=== PATIENT | female | born 1950 | race Two or more races ===

== ENCOUNTER 2022-05-16 08:27 | Inpatient (IN) | payer OTHER ==
[2022-05-16] VITALS (9 sets, daily range): BP systolic 120–162; BP diastolic 65–92
[~2022-05-16] VITALS: Ht 149.9 cm; Wt 75.1 kg
[~2022-05-16 08:27] MED LIST: ACET60TA10 PO; AML5T PO; FERR325T20 PO; FLUO1TAB14 PO; IBUP600T27 PO; LEV50T PO; LISI-285 PO; LOVA20TA4 PO; OMEP20TA PO; PANT40TA2 PO
[2022-05-16] MEDS ORDERED: ceFAZolin 1GM/50ML 100 ML IV ONE (08:47)
[2022-05-16] MEDS ORDERED: MORPHINE SULF PF 5 MG/10 ML VIAL ONE (10:48)
[2022-05-16] MEDS ORDERED: fentaNYL CITRATE 100 MCG/2 ML VL ONE (10:48)
[2022-05-16] MEDS ORDERED: MIDAZOLAM HCL 2MG/2ML 2ml VIAL (1mg/ml) ONE ×2 (10:48)
[2022-05-16] MEDS ORDERED: BUPIVACAINE W/ EPINEPH 0.25% INJ 50ML MDV ONE (10:51)
[2022-05-16] MEDS ORDERED: TETRACAINE 1% INJ 2 ML VIAL IJ ONE (10:52)
[2022-05-16] MEDS ORDERED: KETOROLAC TROMETH 30 MG/ML 1ML VIAL ONE (10:54)
[2022-05-16] MEDS ORDERED: TRANEXAMIC ACID 20 ML ONE (10:54)
[2022-05-16] MEDS ORDERED: VANCOMYCIN HCL 1000 MG VL ONE (10:54)
[2022-05-16] MEDS ORDERED: DexAMETHasone SOD PHOS 10MG/1ML VIAL INJ IV ONE (12:55)
[2022-05-16] MEDS ORDERED: MIDAZOLAM HCL 2MG/2ML 2ml VIAL (1mg/ml) IV PRN (13:30)
[2022-05-16] MEDS ORDERED: NALBUPHINE HCL 10 MG/1ml INJECTION SUBCUT ONE (13:30)
[2022-05-16] MEDS ORDERED: HYDROmorphone HCL 2 MG/ML VL/or syr IV PRN (13:30)
[2022-05-16] MEDS ORDERED: NALOXONE HCL 0.4 MG/ML VIAL IV PRN (13:30)
[2022-05-16] MEDS ORDERED: DexAMETHasone SOD PHOS 10MG/1ML VIAL INJ IV PRN (13:30)
[2022-05-16] MEDS ORDERED: LABETALOL HCL 5 MG/ML 4ML SYRINGE IV PRN (13:30)
[2022-05-16] MEDS ORDERED: ePHEDrine SULFATE 50 MG/ML AMP IV PRN (13:30)
[2022-05-16] MEDS: D5W/LACTATED RINGERS 1,000 ML IV SCH (14:15)
[2022-05-16] MEDS ORDERED: oxyCODONE HCL 5MG TAB PO PRN (14:15)
[2022-05-16] MEDS: oxyCODONE HCL 5MG TAB PO PRN ×2 (16:15→21:42)
[2022-05-16] MEDS: ACETAMINOPHEN 325 MG TAB PO SCH (17:57)
[2022-05-16] MEDS: KETOROLAC TROMETH 30 MG/ML 1ML VIAL IV SCH (17:58)
[2022-05-16] MEDS: ceFAZolin 2 GM in D5W 5% 100 ML IV SCH (17:58)
[2022-05-16] MEDS: PREGABALIN 25 MG CAP PO SCH (21:41)
[2022-05-17] VITALS (16 sets, daily range): BP systolic 99–162; BP diastolic 55–91
[2022-05-17] MEDS: KETOROLAC TROMETH 30 MG/ML 1ML VIAL IV SCH ×4 (00:08→18:00)
[2022-05-17] MEDS: ACETAMINOPHEN 325 MG TAB PO SCH ×4 (00:08→17:55)
[2022-05-17] MEDS: ceFAZolin 2 GM in D5W 5% 100 ML IV SCH (00:09)
[2022-05-17] MEDS: D5W/LACTATED RINGERS 1,000 ML IV SCH ×3 (00:15→20:15)
[2022-05-17] MEDS: oxyCODONE HCL 5MG TAB PO PRN ×3 (01:57→21:31)
[2022-05-17] MEDS: ONDANSETRON HCL 4 MG/2 ML VIAL IV PRN (03:57)
[2022-05-17] MEDS: [UNRECOGNIZED DRUG - REMARK] PO SCH (10:00)
[2022-05-17] MEDS ORDERED: PATIENTS OWN MEDICATION (Fluoxetine HCl (Pmdd) (Fluoxetine HCl) 20 MG) PO SCH (10:00)
[2022-05-17] MEDS: amLODIPine BESYLATE 5 MG TAB PO SCH (10:00)
[2022-05-17] MEDS: FLUoxetine HCL 20 MG CAP PO SCH ×2 (10:00→11:13)
[2022-05-17] MEDS ORDERED: PATIENTS OWN MEDICATION (Lovastatin 20 MG) PO SCH (10:00)
[2022-05-17] MEDS: ASPirin 81 mg TAB PO SCH ×2 (11:07→22:56)
[2022-05-17] MEDS: PREGABALIN 25 MG CAP PO SCH ×2 (11:12→22:56)
[2022-05-17] MEDS: LEVOTHYROXINE SODIUM 50 MCG TAB PO SCH (11:13)
[2022-05-17] MEDS: PRAVASTATIN SODIUM 20 MG TAB PO SCH (11:14)
[2022-05-17] MEDS: PANTOPRAZOLE 40 MG TAB PO SCH (11:14)
[2022-05-17] MEDS ORDERED: BISACODYL 10 MG RECT SUPP PR ONE (22:00)
[2022-05-18] VITALS (7 sets, daily range): BP systolic 93–159; BP diastolic 52–69
[2022-05-18] MEDS: KETOROLAC TROMETH 30 MG/ML 1ML VIAL IV SCH ×4 (00:59→18:19)
[2022-05-18] MEDS: ACETAMINOPHEN 325 MG TAB PO SCH ×4 (00:59→18:47)
[2022-05-18] MEDS: D5W/LACTATED RINGERS 1,000 ML IV SCH ×2 (06:15→08:00)
[2022-05-18] MEDS: ONDANSETRON HCL 4 MG/2 ML VIAL IV PRN ×6 (09:00→22:52)
[2022-05-18] MEDS: oxyCODONE HCL 5MG TAB PO PRN (09:17)
[2022-05-18] MEDS: [UNRECOGNIZED DRUG - REMARK] PO SCH (10:00)
[2022-05-18] MEDS: amLODIPine BESYLATE 5 MG TAB PO SCH (10:00)
[2022-05-18] MEDS: MORPHINE SULFATE INJ 2 MG/ml SYRG IV PRN (10:49)
[2022-05-18] MEDS: PANTOPRAZOLE 40 MG TAB PO SCH (10:50)
[2022-05-18] MEDS: PRAVASTATIN SODIUM 20 MG TAB PO SCH (10:50)
[2022-05-18] MEDS: PREGABALIN 25 MG CAP PO SCH ×2 (10:50→22:00)
[2022-05-18] MEDS: ASPirin 81 mg TAB PO SCH (10:50)
[2022-05-18] MEDS: FLUoxetine HCL 20 MG CAP PO SCH (10:51)
[2022-05-18] MEDS: LEVOTHYROXINE SODIUM 50 MCG TAB PO SCH (10:51)
[2022-05-18 15:41] LABS: Basophils # (auto) 0 10 ^3/uL (0-0.2); Basophils % (auto) 0.2 % (0.0-2.0); Eosinophils # (auto) 0.1 10 ^3/uL (0-0.8); Eosinophils % (auto) 0.7 % (0.0-7.0); Hematocrit 25.1 % (36.0-46.0); Hemoglobin 8.5 g/dL (12.2-16.2); Lymphocytes # (auto) 0.5 10 ^3/uL (0.4-5.4); Lymphocytes % (auto) 3.9 % (10.0-50.0); Mean Corpuscular Hemoglobin 32.9 pg (28.0-32.0); Mean Corpuscular Volume 96.8 fL (80.0-100.0); Monocytes # (auto) 0.6 10 ^3/uL (0-1.3); Monocytes % (auto) 4.7 % (0.0-12.0); Neutrophils % (auto) 90.5 % (37.0-80.0); Red Blood Cells 2.59 10^6/uL (4.0-5.20); White Blood Cell 13.2 10^3/uL (4.4-10.8)
[2022-05-18 15:52] LABS: BUN/Creatinine Ratio 52.8; Calcium 8.4 mg/dL (8.5-10.1); Potassium 4.4 mmol/L (3.5-5.1)
[2022-05-18] MEDS: PROMETHAZINE HCL 25 MG/ML 1ML IV PRN (23:24)
[2022-05-19] VITALS (18 sets, daily range): BP systolic 11–142; BP diastolic 42–82
[2022-05-19 00:33] LABS: Basophils # (auto) 0 10 ^3/uL (0-0.2); Eosinophils # (auto) 0.1 10 ^3/uL (0-0.8); Hematocrit 18.4 % (36.0-46.0); Red Blood Cells 1.88 10^6/uL (4.0-5.20); Red Cell Distribution Width 13.9 % (11.8-14.3)
[2022-05-19 00:35] LABS: Basophils % (auto) 0.3 % (0.0-2.0); Eosinophils % (auto) 0.9 % (0.0-7.0); Mean Corpuscular Hemoglobin 32.4 pg (28.0-32.0); Mean Corpuscular Hgb Conc. 33.1 g/dL (32.0-36.0); Monocytes # (auto) 0.9 10 ^3/uL (0-1.3); Monocytes % (auto) 7.9 % (0.0-12.0); Neutrophils # (auto) 9.9 10 ^3/uL (1.6-8.6); Neutrophils % (auto) 82.9 % (37.0-80.0); White Blood Cell 11.9 10^3/uL (4.4-10.8)
[2022-05-19 00:53] LABS: Hemoglobin 6.1 g/dL (12.2-16.2)
[2022-05-19] MEDS: D5W/LACTATED RINGERS 1,000 ML IV SCH ×2 (02:15→12:10)
[2022-05-19] MEDS: KETOROLAC TROMETH 30 MG/ML 1ML VIAL IV SCH ×4 (06:00→20:00)
[2022-05-19] MEDS: ACETAMINOPHEN 325 MG TAB PO SCH ×4 (06:00→18:00)
[2022-05-19] MEDS: FLUoxetine HCL 20 MG CAP PO SCH (10:00)
[2022-05-19] MEDS: amLODIPine BESYLATE 5 MG TAB PO SCH (10:00)
[2022-05-19] MEDS: LISINOPRIL 20 MG TAB PO SCH (10:00)
[2022-05-19] MEDS: HCTZ 25 MG TAB PO SCH (10:00)
[2022-05-19] MEDS: PRAVASTATIN SODIUM 20 MG TAB PO SCH (10:00)
[2022-05-19] MEDS: PREGABALIN 25 MG CAP PO SCH ×2 (10:00→22:00)
[2022-05-19] MEDS: LEVOTHYROXINE SODIUM 50 MCG TAB PO SCH (10:00)
[2022-05-19] MEDS: PANTOPRAZOLE 40mg/50ML NS AE 50 ML IV SCH ×4 (10:56→23:30)
[2022-05-19] MEDS ORDERED: oxyCODONE HCL 5MG TAB PO PRN ×2 (13:00→13:30)
[2022-05-19] MEDS ORDERED: D5W/LACTATED RINGERS 1,000 ML IV SCH (13:00)
[2022-05-19 14:45] LABS: INR 0.92 (0.9-1.15); Partial Thromboplastin Time 21.2 sec (24.6-33.4)
[2022-05-19] MEDS: D5W/SOD CHLO 0.9% 1,000 ML IV SCH (16:15)
[2022-05-19 19:58] LABS: Basophils # (auto) 0 10 ^3/uL (0-0.2); Basophils % (auto) 0.2 % (0.0-2.0); Eosinophils # (auto) 0 10 ^3/uL (0-0.8); Eosinophils % (auto) 0.3 % (0.0-7.0); Hematocrit 28.5 % (36.0-46.0); Hemoglobin 9.3 g/dL (12.2-16.2); Lymphocytes # (auto) 0.5 10 ^3/uL (0.4-5.4); Lymphocytes % (auto) 5.3 % (10.0-50.0); Mean Corpuscular Hemoglobin 29.7 pg (28.0-32.0); Mean Corpuscular Hgb Conc. 32.5 g/dL (32.0-36.0); Mean Corpuscular Volume 91.3 fL (80.0-100.0); Monocytes # (auto) 0.6 10 ^3/uL (0-1.3); Monocytes % (auto) 7.3 % (0.0-12.0); Neutrophils # (auto) 7.6 10 ^3/uL (1.6-8.6); Neutrophils % (auto) 86.9 % (37.0-80.0); Red Blood Cells 3.12 10^6/uL (4.0-5.20); Red Cell Distribution Width 17.2 % (11.8-14.3); White Blood Cell 8.7 10^3/uL (4.4-10.8)
[2022-05-19 20:07] LABS: BUN/Creatinine Ratio 55.5; Potassium 4.1 mmol/L (3.5-5.1)
[2022-05-20] VITALS (7 sets, daily range): BP systolic 97–131; BP diastolic 49–57
[2022-05-20] MEDS: D5W/SOD CHLO 0.9% 1,000 ML IV SCH ×2 (05:35→18:37)
[2022-05-20] MEDS: PANTOPRAZOLE 40mg/50ML NS AE 50 ML IV SCH ×2 (05:38→10:56)
[2022-05-20] MEDS: ACETAMINOPHEN 325 MG TAB PO SCH ×4 (06:00→18:36)
[2022-05-20 06:10] LABS: INR 0.97 (0.9-1.15); Partial Thromboplastin Time 28.9 sec (24.6-33.4)
[2022-05-20 06:11] LABS: Basophils # (auto) 0 10 ^3/uL (0-0.2); Eosinophils # (auto) 0.1 10 ^3/uL (0-0.8); Hematocrit 22.9 % (36.0-46.0); Lymphocytes # (auto) 0.4 10 ^3/uL (0.4-5.4); Monocytes # (auto) 0.9 10 ^3/uL (0-1.3); Neutrophils # (auto) 7.7 10 ^3/uL (1.6-8.6); Nucleated Red Blood Cells % 0.1 %
[2022-05-20 06:13] LABS: Basophils % (auto) 0.1 % (0.0-2.0); Eosinophils % (auto) 1.6 % (0.0-7.0); Lymphocytes % (auto) 4.6 % (10.0-50.0); Mean Corpuscular Hemoglobin 31.5 pg (28.0-32.0); Mean Corpuscular Hgb Conc. 35.1 g/dL (32.0-36.0); Mean Corpuscular Volume 89.6 fL (80.0-100.0); Monocytes % (auto) 9.6 % (0.0-12.0); Neutrophils % (auto) 84.1 % (37.0-80.0); Red Blood Cells 2.56 10^6/uL (4.0-5.20); Red Cell Distribution Width 16.9 % (11.8-14.3); White Blood Cell 9.1 10^3/uL (4.4-10.8)
[2022-05-20 06:19] LABS: Potassium 4.6 mmol/L (3.5-5.1)
[2022-05-20 06:34] LABS: BUN/Creatinine Ratio 63.6; Bilirubin, Total 0.6 mg/dL (0.2-1.0); Total Protein 5.1 g/dL (6.4-8.2)
[2022-05-20] MEDS: PRAVASTATIN SODIUM 20 MG TAB PO SCH (09:23)
[2022-05-20] MEDS: PREGABALIN 25 MG CAP PO SCH ×2 (09:23→21:36)
[2022-05-20] MEDS: FLUoxetine HCL 20 MG CAP PO SCH (09:24)
[2022-05-20] MEDS: LEVOTHYROXINE SODIUM 50 MCG TAB PO SCH (09:24)
[2022-05-20] MEDS: PROMETHAZINE HCL 25 MG/ML 1ML IV PRN (09:25)
[2022-05-20] MEDS: LISINOPRIL 20 MG TAB PO SCH (09:37)
[2022-05-20] MEDS: amLODIPine BESYLATE 5 MG TAB PO SCH (09:37)
[2022-05-20] MEDS: HCTZ 25 MG TAB PO SCH (09:38)
[2022-05-20 10:57] LABS: Magnesium 2.1 mg/dL (1.6-2.6); Phosphorus 2.5 mg/dL (2.5-4.90)
[2022-05-20 12:31] LABS: Urine Bacteria FEW /hpf (None Seen); Urine Blood TRACE /uL (Negative); Urine Specific Gravity 1.015 (1.001-1.035); Urine WBC 4 /hpf (0 - 5)
[2022-05-20 12:51] LABS: Protein, Urine 53.3 mg/dL (0.0-11.9)
[2022-05-20 12:52] LABS: Creatinine, Urine 57 mg/dL (30.0-125.0); Sodium Urine 9 mmol/L (40-220)
[2022-05-20] MEDS: oxyCODONE HCL 5MG TAB PO PRN (14:30)
[2022-05-20] MEDS ORDERED: SODIUM FERR GLUC 62.5MG/5ML 125 MG in SODIUM CHL 0.9% 100 ML IV ONE (15:00)
[2022-05-20] MEDS ORDERED: IRON SUCROSE COMPLEX 200 MG in SODIUM CHL 0.9% 100 ML IV ONE (15:15)
[2022-05-20] MEDS: PANTOPRAZOLE 40 MG TAB PO SCH (21:37)
[2022-05-21] VITALS (7 sets, daily range): BP systolic 104–145; BP diastolic 57–77
[2022-05-21] MEDS: ACETAMINOPHEN 325 MG TAB PO SCH ×4 (00:16→17:30)
[2022-05-21 06:13] LABS: Basophils # (auto) 0 10 ^3/uL (0-0.2); Eosinophils # (auto) 0.4 10 ^3/uL (0-0.8); Hemoglobin 7.6 g/dL (12.2-16.2)
[2022-05-21 06:15] LABS: Basophils % (auto) 0.3 % (0.0-2.0); Eosinophils % (auto) 3.4 % (0.0-7.0); Hematocrit 22.6 % (36.0-46.0); Lymphocytes # (auto) 0.7 10 ^3/uL (0.4-5.4); Lymphocytes % (auto) 6.3 % (10.0-50.0); Mean Corpuscular Hgb Conc. 33.9 g/dL (32.0-36.0); Mean Corpuscular Volume 91.4 fL (80.0-100.0); Monocytes # (auto) 1.4 10 ^3/uL (0-1.3); Monocytes % (auto) 12.4 % (0.0-12.0); Neutrophils # (auto) 8.5 10 ^3/uL (1.6-8.6); Neutrophils % (auto) 77.6 % (37.0-80.0); Red Blood Cells 2.47 10^6/uL (4.0-5.20); Red Cell Distribution Width 17.3 % (11.8-14.3)
[2022-05-21 06:43] LABS: Calcium 8.1 mg/dL (8.5-10.1)
[2022-05-21] MEDS: D5W/SOD CHLO 0.9% 1,000 ML IV SCH (07:42)
[2022-05-21] MEDS: FLUoxetine HCL 20 MG CAP PO SCH (09:27)
[2022-05-21] MEDS: PRAVASTATIN SODIUM 20 MG TAB PO SCH (09:27)
[2022-05-21] MEDS: PANTOPRAZOLE 40 MG TAB PO SCH ×2 (09:28→22:25)
[2022-05-21] MEDS: LEVOTHYROXINE SODIUM 50 MCG TAB PO SCH (09:30)
[2022-05-21] MEDS: PREGABALIN 25 MG CAP PO SCH ×2 (09:30→22:24)
[2022-05-21] MEDS ORDERED: FERROUS SULFATE 300 MG/5 ML ORAL LIQ PO SCH (10:00)
[2022-05-21] MEDS ORDERED: SODIUM FERR GLUC 62.5MG/5ML 125 MG in SODIUM CHL 0.9% 100 ML IV SCH (12:00)
[2022-05-21] MEDS: IRON SUCROSE COMPLEX 200 MG in SODIUM CHL 0.9% 100 ML IV SCH (14:42)
[2022-05-21] MEDS: PRAMIPEXOLE DIHYDROCHLORIDE MO 0.25 MG TAB PO SCH ×2 (15:11→22:25)
[2022-05-21] MEDS: oxyCODONE HCL 5MG TAB PO PRN (17:30)
[2022-05-21] MEDS: PROMETHAZINE HCL 25 MG/ML 1ML IV PRN (22:25)
[2022-05-21] MEDS: MORPHINE SULFATE INJ 2 MG/ml SYRG IV PRN (22:26)
[2022-05-22] MEDS: ACETAMINOPHEN 325 MG TAB PO SCH ×3 (00:02→12:26)
[2022-05-22 05:00] VITALS: BP 133/64
[2022-05-22 05:12] LABS: Hemoglobin 7.7 g/dL (12.2-16.2)
[2022-05-22 05:21] LABS: BUN/Creatinine Ratio 41.3; Calcium 8.2 mg/dL (8.5-10.1); Potassium 4.2 mmol/L (3.5-5.1)
[2022-05-22] MEDS: PRAMIPEXOLE DIHYDROCHLORIDE MO 0.25 MG TAB PO SCH ×2 (06:11→13:21)
[2022-05-22 08:00] VITALS: BP 141/63
[2022-05-22 09:00] VITALS: BP 141/63
[2022-05-22] MEDS: PREGABALIN 25 MG CAP PO SCH (09:06)
[2022-05-22] MEDS: PRAVASTATIN SODIUM 20 MG TAB PO SCH (09:07)
[2022-05-22] MEDS: FLUoxetine HCL 20 MG CAP PO SCH (09:07)
[2022-05-22] MEDS: LEVOTHYROXINE SODIUM 50 MCG TAB PO SCH (09:07)
[2022-05-22] MEDS: PANTOPRAZOLE 40 MG TAB PO SCH (09:07)
[2022-05-22] MEDS ORDERED: LACTULOSE 20Gm/30ML SOLN PO ONE (10:30)
[2022-05-22] MEDS ORDERED: PERCOT PO (12:21)
[2022-05-22] MEDS ORDERED: FERR-7 PO (12:21)
[2022-05-22] MEDS ORDERED: SENN-83 PO (12:21)
[2022-05-22 12:26] LABS: Hepatitis C Antibody Negative (Negative)
[2022-05-22] MEDS: IRON SUCROSE COMPLEX 200 MG in SODIUM CHL 0.9% 100 ML IV SCH (12:27)
[2022-05-22 12:51] VITALS: BP 141/63
[2022-05-22 13:00] VITALS: BP 159/77
[2022-05-22] MEDS: oxyCODONE HCL 5MG TAB PO PRN (13:21)
== END 2022-05-22 15:16 | disposition home or self-care (01) | DRG 469 ==
LOC: SUR 08:27 → TELE 14:08 → TELE-CENTR 17:30
PROVIDERS: ADMIT Orthopaedic Surgery; ATTEND Internal Medicine
PROC: 0SRD069 Replacement of Left Knee Joint with Oxidized Zirconium on Polyethylene Synthetic Substitute, Cemented, Open Approach (ICD-10-PCS; principal; 2022-05-16 11:21)
PROC: 30233N1 Transfusion of Nonautologous Red Blood Cells into Peripheral Vein, Percutaneous Approach (ICD-10-PCS; 2022-05-19)
DX: M17.12 Unilateral primary osteoarthritis, left knee (principal); N17.0 Acute kidney failure with tubular necrosis; D62 Acute posthemorrhagic anemia; K92.2 Gastrointestinal hemorrhage, unspecified; I12.9 Hypertensive chronic kidney disease with stage 1 through stage 4 chronic kidney disease, or unspecified chronic kidney disease; E03.9 Hypothyroidism, unspecified; E78.5 Hyperlipidemia, unspecified; N18.9 Chronic kidney disease, unspecified; Z80.0 Family history of malignant neoplasm of digestive organs; Z79.899 Other long term (current) drug therapy; Z83.3 Family history of diabetes mellitus; Z90.710 Acquired absence of both cervix and uterus
CPT/HCPCS: 36415; 73562; 74176; 76775; 80048; 80053; 81001; 82306; 82570; 83735; 83970; 84100; 84156; 84300; 85014; 85018; 85025; 85610; 85730; 86803; 86850; 86900; 86901; 86920; 87340; 97116; 97163; 97530; G0378; J0690; J1100; J1756; J1885; J2250; J2405; J7042; J7060